=== PATIENT | male | born 1965 | race African-American/Black ===

== ENCOUNTER 2016-12-01 14:43 | Emergency (ER) | payer BC ==
[~2016-12-01] VITALS: Ht 175.3 cm; Wt 98.7 kg
[~2016-12-01 14:43] MED LIST changes: -LISINOPRIL10 MG PO; -METFORMIN HCL500 M1 PO; -PRAVACHOL20 MG PO
[2016-12-01] MEDS ORDERED: METFORMIN HCL500 M1 PO (23:04)
[2016-12-01] MEDS ORDERED: LISINOPRIL10 MG PO (23:05)
[2016-12-01] MEDS ORDERED: PRAVACHOL20 MG PO (23:05)
== END 2016-12-01 16:00 | disposition home or self-care (01) ==
LOC: CED 14:43 → CFTX 14:43
DX: L76.21 Postprocedural hemorrhage of skin and subcutaneous tissue following a dermatologic procedure (principal); E11.9 Type 2 diabetes mellitus without complications; E78.00 Pure hypercholesterolemia, unspecified; I10 Essential (primary) hypertension; Z79.899 Other long term (current) drug therapy
CPT/HCPCS: 99283

== ENCOUNTER → 2016-12-01 | Day surgery (SDC) | payer BC ==
[~2016-12-01] MED LIST: FLEXERIL PO; LISINOPRIL10 MG PO; METFORMIN HCL500 M1 PO; PRAVACHOL20 MG PO; VICODIN 5/500 T1 TAB PO; ZANTAC PO
--- NOTE | ~2016-12-01 | OR ---
Unit #: [id number] #: [id number] Patient: ISMAEL DELGADILLO [id number] [address] [address] [id number] O MR#: [id number] NAME: ISMAEL DELGADILLO ROOM: Date of Procedure: 12/01/2016 Admission Date: 12/01/2016 Surgeon: Jaylen Mora Jr., M.D. : 1965 Attending Physician: Jaylen Mora Jr., M.D. Primary Care Physician: [facility] OPERATIVE REPORT INDICATIONS FOR PROCEDURE The patient is a 51-year-old black male, recently presented to the office complaining of an enlarging mass of the right occipital scalp. This does cause headaches and pain at times. He is brought in this time for removal of this under local anesthesia at his request. PREOPERATIVE DIAGNOSIS Enlarging mass of the right occipital scalp. POSTOPERATIVE DIAGNOSIS Enlarging mass of the right occipital scalp noting approximately 5 to 6 cm lipomatous mass. ANESTHESIA 1% Xylocaine with epinephrine locally. PROCEDURE PERFORMED Excision of mass, right occipital area. DESCRIPTION OF PROCEDURE The patient was positioned in the left lateral decubitus position. After being prepped and draped in routine fashion, he was anesthetized locally in the area of the mass with 1% Xylocaine with epinephrine. A transverse incision approximately 2 inches to 2-1/2 inches in length was made over the mass. This was carried down through the subcutaneous tissue to the area of the mass. The mass appeared to be almost encapsulated lipomatous lesion. It was dissected free of the surrounding tissue with both #10 blade scalpel well as Metzenbaum scissors. After it was completely mobilized, it was removed. It was sent to pathology. Hemostasis was achieved with Bovie cautery and after total hemostasis was achieved, the skin edges were approximated with interrupted 2-0 and 5-0 nylon sutures. Ointment was applied externally. Estimated blood loss less than 20 mL. The patient received no fluids during the procedure. Sponges and instrument counts were correct x3. No drains used. No complications. The patient was discharged in satisfactory condition. Dictated by... Jaylen Mora Jr., M.D. JMB/sapphirel Unit #: [id number] #: [id number] Patient: MARCIEARIANNAISMAEL Ewing TD: 12/01/2016 19:58 JOB #: [id number] OPERATIVE REPORT Page 1 of 1 X Jaylen Mora MD PROCEDURE OPERATIVE NOTE
== END | disposition home or self-care (01) ==
LOC: CSUR 08:27
DX: E65 Localized adiposity (principal); M79.89 Other specified soft tissue disorders; E11.9 Type 2 diabetes mellitus without complications; I10 Essential (primary) hypertension; K21.9 Gastro-esophageal reflux disease without esophagitis; E78.00 Pure hypercholesterolemia, unspecified; Z79.84 Long term (current) use of oral hypoglycemic drugs; Z79.899 Other long term (current) drug therapy
CPT/HCPCS: 82947; 88304